=== PATIENT | female | born 1995 | race Hispanic/Latino ===

== ENCOUNTER 2021-06-20 17:47 | Emergency (ER) | payer OTHER ==
[~2021-06-20] VITALS: Ht 152.4 cm; Wt 61.2 kg
[2021-06-20] MEDS ORDERED: AMOX1TAB16 PO (19:10)
[2021-06-20] MEDS ORDERED: LACT1CAP81 PO (19:10)
[2021-06-20] MEDS ORDERED: IBUP-2070 PO (19:10)
[2021-06-20] MEDS ORDERED: ONDA4TAB10 PO (19:10)
[2021-06-20 19:26] VITALS: BP 128/86
== END 2021-06-20 19:27 | disposition home or self-care (01) ==
LOC: EDH 17:47
DX: K52.9 Noninfective gastroenteritis and colitis, unspecified (principal); H66.92 Otitis media, unspecified, left ear; Z79.1 Long term (current) use of non-steroidal anti-inflammatories (NSAID); Z79.899 Other long term (current) drug therapy
CPT/HCPCS: 87804; 87880

== ENCOUNTER 2021-10-10 10:43 | Emergency (ER) | payer OTHER ==
[~2021-10-10] VITALS: Ht 149.9 cm; Wt 59.0 kg
[~2021-10-10 10:43] MED LIST: AMOX1TAB16 PO; IBUP-2070 PO; LACT1CAP81 PO; ONDA4TAB10 PO
[2021-10-10] MEDS: ORPHENADRINE CITRATE 30 MG/ML ML IM SCH (11:24)
[2021-10-10] MEDS: KETOROLAC 30MG VIAL (30MG/ML) IM SCH (11:24)
[2021-10-10] MEDS ORDERED: METH-662 PO (12:30)
[2021-10-10] MEDS ORDERED: NAPR-1023 PO (12:30)
[2021-10-10 12:43] VITALS: BP 135/86
== END 2021-10-10 12:44 | disposition home or self-care (01) ==
LOC: EDH 10:43
DX: M54.42 Lumbago with sciatica, left side (principal); Z79.1 Long term (current) use of non-steroidal anti-inflammatories (NSAID); Z79.899 Other long term (current) drug therapy
CPT/HCPCS: 99284; 81025; 72100; 96372 ×2; J1885; J2360

== ENCOUNTER 2022-02-12 15:08 | Emergency (ER) | payer OTHER ==
[~2022-02-12] VITALS: Ht 149.9 cm; Wt 52.2 kg
[~2022-02-12 15:08] MED LIST changes: +METH-662 PO; +NAPR-1023 PO
[2022-02-12 15:29] VITALS: BP 135/102
== END 2022-02-12 16:43 | disposition home or self-care (01) ==
LOC: EDH 15:08
DX: U07.1 COVID-19 (principal); Z79.899 Other long term (current) drug therapy
CPT/HCPCS: 99283; 87635; 87804 ×2; C9803

== ENCOUNTER 2022-06-10 12:39 | Emergency (ER) | payer OTHER ==
[~2022-06-10] VITALS: Ht 149.9 cm; Wt 56.7 kg
[2022-06-10 13:07] LABS: APPEARANCE,URINE CLEAR (CLEAR); BILIRUBIN,URINE NEGATIVE (NEGATIVE); COLOR,URINE LIGHT-YELLOW (YELLOW); GLUCOSE, URINE (UA) NEGATIVE (NEGATIVE); KETONES,URINE NEGATIVE (NEGATIVE); LEUKOCYTE ESTERASE ,URINE NEGATIVE Leu/uL (NEGATIVE); NITRATE,URINE NEGATIVE (NEGATIVE); OCCULT BLOOD,URINE SMALL (NEGATIVE); PH,URINE 7.5 (5.0-8.0); PROTEIN,URINE NEGATIVE (NEGATIVE); UROBILINOGEN,URINE 0.2 mg/dL (0.2-1.0)
[2022-06-10 13:19] LABS: HCG,QUALITATIVE URINE NEGATIVE (NEGATIVE)
[2022-06-10 13:21] LABS: MUCUS,URINE RARE LPF (None Seen); SQUAMOUS EPITHELIAL CELL,UR RARE /HPF (0-2)
[2022-06-10] MEDS ORDERED: IBUPROFEN 600 MG TABLET PO ONE (14:00)
[2022-06-10 14:12] VITALS: BP 121/80
[2022-06-10] MEDS ORDERED: ONDA4TAB10 PO (14:31)
== END 2022-06-10 14:43 | disposition home or self-care (01) ==
LOC: EDH 12:39
DX: J06.9 Acute upper respiratory infection, unspecified (principal); Z20.822 Contact with and (suspected) exposure to COVID-19; Z79.899 Other long term (current) drug therapy
CPT/HCPCS: 99283; 87635; 87880; 87804 ×2; 81001; 81025; C9803

== ENCOUNTER 2023-04-18 09:00 | Emergency (ER) | payer OTHER ==
[~2023-04-18] VITALS: Ht 149.9 cm; Wt 47.6 kg
[2023-04-18 09:33] LABS: APPEARANCE,URINE CLEAR (CLEAR); BILIRUBIN,URINE NEGATIVE (NEGATIVE); COLOR,URINE LIGHT-YELLOW (YELLOW); GLUCOSE, URINE (UA) NEGATIVE (NEGATIVE); KETONES,URINE 20 mg/dL (NEGATIVE); LEUKOCYTE ESTERASE ,URINE NEGATIVE Leu/uL (NEGATIVE); NITRATE,URINE NEGATIVE (NEGATIVE); OCCULT BLOOD,URINE NEGATIVE (NEGATIVE); PH,URINE 6.5 (5.0-8.0); PROTEIN,URINE NEGATIVE (NEGATIVE); UROBILINOGEN,URINE 0.2 mg/dL (0.2-1.0)
[2023-04-18 09:35] LABS: HCG,QUALITATIVE URINE NEGATIVE (NEGATIVE)
[2023-04-18 09:50] LABS: ADD UA MICROSCOPIC YES
[2023-04-18 09:52] LABS: BACTERIA,URINE RARE /HPF (None Seen); MUCUS,URINE RARE LPF (None Seen); SQUAMOUS EPITHELIAL CELL,UR MOD /HPF (0-2)
[2023-04-18 10:09] LABS: BASOPHILS # (AUTO) 0.02 K/uL (0.00-0.20); BASOPHILS % (AUTO) 0.2 % (0.0-5.0); EOSINOPHILS # (AUTO) 0.04 K/uL (0.00-0.70); EOSINOPHILS % (AUTO) 0.4 % (0.0-8.0); HEMATOCRIT 42.7 % (36-48); IMMATURE GRANULOCYTE ABSOLUTE 0.03 K/uL (0-1); LYMPHOCYTES # (AUTO) 1.4 K/uL (1.0-4.8); LYMPHOCYTES % (AUTO) 15.2 % (21.0-51.0); MEAN CORPUSCULAR HEMOGLOBIN 29.1 pg (27.0-33.0); MEAN CORPUSCULAR HGB CONC 34.2 g/dL (32.0-36.0); MEAN CORPUSCULAR VOLUME 85.2 fL (79-99); MONOCYTES # (AUTO) 0.7 K/uL (0.1-1.0); MONOCYTES % (AUTO) 7.3 % (3.0-13.0); NEUTROPHILS # (AUTO) 6.9 K/uL (1.8-7.7); NEUTROPHILS % (AUTO) 76.6 % (40.0-77.0); PLATELET COUNT (AUTO) 263 K/uL (130-400); RED BLOOD CELL COUNT(AUTO) 5.01 MIL/uL (4.00-5.50); RED CELL DISTRIBUTION WIDTH 13.2 % (11.0-15.5)
[2023-04-18 10:17] LABS: CREATININE 0.7 mg/dL (0.5-1.5); POTASSIUM 3.5 mmol/L (3.5-5.1)
[2023-04-18 10:22] LABS: ALBUMIN 3.7 g/dL (3.5-5.0); BILIRUBIN,TOTAL 0.9 mg/dL (0.2-1.0); TOTAL PROTEIN, SERUM 8.5 g/dL (6.0-8.3)
[2023-04-18] MEDS ORDERED: L AC460C PO (10:28)
[2023-04-18] MEDS ORDERED: PANT40TA55 PO (10:28)
[2023-04-18] MEDS: PANTOPRAZOLE 40 MG TAB DR PO ONE (10:40)
[2023-04-18 10:51] VITALS: BP 121/79; PULSE 90; RESP 18; O2SAT 99
== END 2023-04-18 11:19 | disposition home or self-care (01) ==
LOC: EDH 09:00
DX: R12 Heartburn (principal); T36.8X5A Adverse effect of other systemic antibiotics, initial encounter; R10.9 Unspecified abdominal pain; Y92.89 Other specified places as the place of occurrence of the external cause; Z79.899 Other long term (current) drug therapy; Z98.890 Other specified postprocedural states
CPT/HCPCS: 36415; 80053; 81001; 81025; 83690; 85025

== ENCOUNTER 2024-07-19 12:49 | Emergency (ER) | payer OTHER, MEDICAID ==
[~2024-07-19] VITALS: Ht 149.9 cm; Wt 52.6 kg
[~2024-07-19 12:49] MED LIST changes: -AMOX1TAB16 PO; -IBUP-2070 PO; +L AC460C PO; -LACT1CAP81 PO; -METH-662 PO; -NAPR-1023 PO; +ONDA-243 PO; -ONDA4TAB10 PO; +PANT40TA55 PO
--- NOTE | 2024-07-19 13:02 | NUR ---
HEART TONES 160
[2024-07-19 13:04] VITALS: BP 116/81; PULSE 94; RESP 18; TEMP 98.7; O2SAT 98
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
== END 2024-07-19 13:10 | disposition home or self-care (01) ==
LOC: EDH 12:49
DX: O26.892 Other specified pregnancy related conditions, second trimester (principal); M54.50 Low back pain, unspecified; Z3A.17 17 weeks gestation of pregnancy; Z79.899 Other long term (current) drug therapy; V89.2XXA Person injured in unspecified motor-vehicle accident, traffic, initial encounter; Y93.I9 Activity, other involving external motion; Y92.89 Other specified places as the place of occurrence of the external cause; Y99.8 Other external cause status
CPT/HCPCS: 99281